=== PATIENT | male | born 1950 | race African-American/Black ===

== ENCOUNTER 2016-10-19 19:53 | Emergency (ER) | payer OTHER ==
[~2016-10-19 19:53] MED LIST: ASPI325T PO; CARV6.252 PO; CHOL1TAB16 PO; GLIM1 PO; METF500 PO; NEUR600T PO; OMEP20TA39 PO; TRAD5TAB PO; ULTR50TA PO; ZOFR4TAB3 SL
[2016-10-19 19:57] VITALS: BP 223/103; PULSE 100; RESP 16; TEMP 97.9; O2SAT 97
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
[2016-10-19 20:30] VITALS: BP 214/77; PULSE 83; RESP 17; O2SAT 94
[2016-10-19] MEDS ORDERED: TRAD5TAB PO (20:30)
[2016-10-19] MEDS ORDERED: CLON0.1T PO (20:30)
[2016-10-19] MEDS ORDERED: LISI-515 PO (20:30)
[2016-10-19] MEDS ORDERED: CHOL1CAP34 PO (20:30)
[2016-10-19] MEDS ORDERED: GABA600T PO (20:30)
[2016-10-19] MEDS ORDERED: LABETALOL HCL 100 MG/20 ML VIAL IV PUSH ONE (20:30)
[2016-10-19] MEDS ORDERED: KETOROLAC TROMETHAMINE 60 MG/2 ML (IM) VIAL IM ONE (20:30)
[2016-10-19] MEDS ORDERED: AMLO5TAB2 PO (20:30)
[2016-10-19] MEDS ORDERED: ASPI81CH37 CHEW (20:30)
[2016-10-19] MEDS ORDERED: METF1000 PO (20:30)
[2016-10-19] MEDS ORDERED: TRAM50TA PO (20:30)
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
[2016-10-19 21:05] VITALS: BP 196/87; PULSE 80; RESP 17; O2SAT 94
[2016-10-19] MEDS ORDERED: KETO10 PO (21:05)
--- NOTE | 2016-10-20 17:37 | EKG ---
Date Performed: 10/19/2016 Time Performed: 20:20:04 PTAGE: 65 years EKG: Sinus rhythm LEFT ATRIAL ENLARGEMENT SEPTAL MYOCARDIAL INFARCTION MODERATE T-WAVE ABNORMALITY, CONSIDER LATERAL I SCHEMIA ABNORMAL ECG Compared to PREVIOUS TRACING , the previously noted anterior T wave changes have improved. There is also evidence of a septal MN which could be positional. Clinical correlation recommended. PREVIOUS T RACIN11/01/2015 01.12.25 DOCTOR: Joao Haddad Interpretating Date/Time 10/20/2016 17:35:33
== END 2016-10-19 21:49 | disposition home or self-care (01) ==
LOC: NEPE 19:53
DX: S29.011A Strain of muscle and tendon of front wall of thorax, initial encounter (principal); I10 Essential (primary) hypertension; E11.9 Type 2 diabetes mellitus without complications; I51.7 Cardiomegaly; I25.2 Old myocardial infarction; R94.31 Abnormal electrocardiogram [ECG] [EKG]; V43.52XA Car driver injured in collision with other type car in traffic accident, initial encounter; Z79.82 Long term (current) use of aspirin; Z79.899 Other long term (current) drug therapy
CPT/HCPCS: 71010; 93005; 96372; 96374; 99284; J1885

== ENCOUNTER 2017-09-06 13:55 | Emergency (ER) | payer OTHER ==
[~2017-09-06] VITALS: Ht 170.2 cm; Wt 86.5 kg
[~2017-09-06 13:55] MED LIST changes: +AMLO5TAB2 PO; -ASPI325T PO; +ASPI81CH6 CHEW; -CARV6.252 PO; +CHOL1CAP34 PO; -CHOL1TAB16 PO; +CLON0.1T PO; +GABA600T PO; -GLIM1 PO; +KETO10 PO; +LISI-515 PO; +METF1000 PO; -METF500 PO; -NEUR600T PO; -OMEP20TA39 PO; +TRAM50TA PO; -ULTR50TA PO; -ZOFR4TAB3 SL
[2017-09-06 14:04] VITALS: BP 141/78; PULSE 90; RESP 16; TEMP 98.3; O2SAT 98
[2017-09-06] MEDS ORDERED: KETOROLAC TROMETHAMINE 60 MG/2 ML (IM) VIAL IM ONE (16:00)
--- NOTE | 2017-09-06 16:32 | RADRPT ---
EXAM DATE: 09/06/2017 4:26 PM EDT AGE/SEX: 66 years / Male INDICATIONS: Pain due to fall. CLINICAL DATA: This is the patient's initial encounter. Patient reports that signs and symptoms have been present for 1 day and indicates a pain score of 8/10. MEDICAL/SURGICAL HISTORY: Diabetes mellitus type II. Hypertension. Aneurysm, intracranial. . Aneurysm repair. Colon resection. COMPARISON: No prior exams available for comparison. FINDINGS: There is mild to moderate osteoarthritis of the bilateral hips. No acute fracture or dislocation. No bony destructive changes. CONCLUSION: Mild to moderate osteoarthritis of the hips. No acute bony abnormality. Electronically signed by: Carlito Bennett MD 09/06/2017 4:30 PM EDT
[2017-09-06] MEDS ORDERED: CYCL10TA PO (16:59)
--- NOTE | 2017-09-06 16:59 | PD ---
HPI Chief Complaint: Hip Injury Time Seen by Provider: 15:41 Travel History International Travel<30 days: No Contact w/Intl Traveler<30days: No Traveled to known affect area: No History of Present Illness HPI Patient is a 66-year-old male who comes in complaining of left hip pain after a fall yesterday. He says that he fell walking out of work yesterday. He says he tripped on the rug and landed on his left side. He says he has had pain to his left hip since then. He says he took gabapentin and tramadol at home without much relief of his pain. He denies any back pain. Did not hit his head or lose consciousness. Denies any shoulder pain or arm pain. Severity is mild to moderate. PFSH Past Medical History Autoimmune Disease: No Heart Rhythm Problems: No Cancer: No Cardiovascular Problems: Yes High Cholesterol: No Chest Pain: Yes Cerebrovascular Accident: No Diabetes: Yes Patient Takes Glucophage: No Diminished Hearing: No Endocrine: Yes Gastrointestinal Disorders: Yes (HX OF COLON RESECTION) GERD: No Genitourinary: No Hiatal Hernia: No Hypertension: Yes Immune Disorder: No Implanted Vascular Access Dvce: Yes Musculoskeletal: No Neurologic: Yes (BRAIN ANEURYSM ) Psychiatric: No Reproductive: No Respiratory: No Migraines: No Seizures: No Sickle Cell Disease: No Thyroid Disease: No Ulcer: No Past Surgical History Abdominal Surgery: Yes (COLON RESECTION IN 2003) AICD: No Arteriovenous Shunt: No Body Medical Devices: BRAIN ANEURISM CLIP Cardiac Surgery: No Ear Surgery: No Endocrine Surgery: No Eye Surgery: No Genitourinary Surgery: No Insulin Pump: No Joint Replacement: No Neurologic Surgery: Yes (BRAIN SX. IN 1983) Oral Surgery: No Pacemaker: No Thoracic Surgery: No Other Surgery: Yes (REMOVAL OF CYST TO POSTERIOR NECK ) Social History Alcohol Use: No Tobacco Use: Yes (QUIT 11/2007) Substance Use: No Allergies-Medications (Allergen,Severity, Reaction): Coded Allergies: acetaminophen (Unverified Allergy, Severe, Rash, 10/29/16) AND VOMITING codeine (Unverified Allergy, Severe, Hives, 10/29/16) propoxyphene (Unverified Allergy, Severe, Rash, 10/29/16) AND VOMITING Reported Meds & Prescriptions Reported Meds & Active Scripts Active Ketorolac (Ketorolac Tromethamine) 10 Mg Tab 10 Mg PO BID Reported Lisinopril 20 Mg Tab 20 Mg PO BID Amlodipine (Amlodipine Besylate) 5 Mg Tab 5 Mg PO DAILY Clonidine (Clonidine HCl) 0.1 Mg Tab 0.1 Mg PO BID Tramadol (Tramadol HCl) 50 Mg Tab 100 Mg PO Q6H PRN Tradjenta (Linagliptin) 5 Mg Tab 5 Mg PO DAILY Metformin (Metformin HCl) 1,000 Mg Tab 1,000 Mg PO BIDPC With meals Gabapentin 600 Mg Tab 600 Mg PO TID Vitamin D3 (Cholecalciferol) 50,000 Unit Cap 50,000 Units PO Q7D Aspirin Low Dose (Aspirin) 81 Mg Chew 81 Mg CHEW DAILY Review of Systems General / Constitutional: No: Fever, Chills HENT: No: Headaches, Lightheadedness Cardiovascular: No: Chest Pain or Discomfort Respiratory: No: Shortness of Breath Gastrointestinal: No: Nausea, Vomiting Musculoskeletal: Positive: Pain Skin: No Rash, No Change in Pigmentation Neurologic: No: Weakness, Dizziness, Sensory Disturbance Physical Exam Narrative GENERAL: Awake and alert, no acute distress. SKIN: Focused skin assessment warm/dry. HEAD: Atraumatic. Normocephalic. EYES: Pupils equal and round. No scleral icterus. ENT: Mucous membranes pink and moist. CARDIOVASCULAR: Regular rate and rhythm. No murmur appreciated. RESPIRATORY: No accessory muscle use. Clear to auscultation. Breath sounds equal bilaterally. MUSCULOSKELETAL: No obvious deformities. No clubbing. No cyanosis. No edema. No tenderness to palpation of the spine. Pain to palpation of the left hip. Pain with movement of the left hip. No pain to the shoulder. NEUROLOGICAL: Awake and alert. No obvious cranial nerve deficits. Motor grossly within normal limits. Normal speech. Data Data Last Documented VS Vital Signs Date Time Temp Pulse Resp B/P (MAP) Pulse Ox O2 Delivery O2 Flow Rate FiO2 09/06/17 14:04 98.3 90 16 141/78 (99) 98 Orders Orders Ketorolac Inj (Toradol Inj) (09/06/17 16:00) Hip, Uni(Ap&Lat) W Ap Pelvis (09/06/17 ) MDM Medical Decision Making Medical Screen Exam Complete: Yes Emergency Medical Condition: Yes Medical Record Reviewed: Yes Differential Diagnosis Hip fracture versus strain versus groin sprain Narrative Course Patient is a 66-year-old male who comes in complaining of left hip pain after a fall. Exam shows pain with movement. X-ray of the hip and pelvis performed show arthritis, no acute abnormalities. Last 24 hours Impressions Hip and Pelvis X-Ray 09/06/17 0000 Signed Impressions: CONCLUSION: Mild to moderate osteoarthritis of the hips. No acute bony abnormality. Patient given Toradol for pain. He reports feeling better. He is advised take ibuprofen as needed at home. Advised follow-up with his doctors. Advised return to the ED as needed for any worsening symptoms. Diagnosis Primary Impression: Muscle strain Patient Instructions: Arthritis (ED), General Instructions, Hip Pain (ED) Additional Instructions: Follow-up with your doctor. Take ibuprofen as needed for pain. He can take a muscle relaxer as well. Be careful as these may make you drowsy. Return to the ED as needed for any worsening symptoms. Scripts Cyclobenzaprine (Flexeril) 10 Mg Tab 10 MG PO TID for Muscle Spasm, #15 TAB 0 Refills Prov: Yesenia Langley MD 09/06/17 Disposition: 01 DISCHARGE HOME Condition: Stable Yesenia Langley MD Sep 06, 2017 16:59
[2017-09-06 17:17] VITALS: BP 138/69
== END 2017-09-06 17:49 | disposition home or self-care (01) ==
LOC: NEPD 13:55
DX: T14.8XXA Other injury of unspecified body region, initial encounter (principal); M25.552 Pain in left hip; M16.0 Bilateral primary osteoarthritis of hip; E11.9 Type 2 diabetes mellitus without complications; I10 Essential (primary) hypertension; W19.XXXA Unspecified fall, initial encounter; Y93.01 Activity, walking, marching and hiking; Z79.84 Long term (current) use of oral hypoglycemic drugs; Z87.891 Personal history of nicotine dependence
CPT/HCPCS: 73502; 96372; 99283; E0113; J1885